=== PATIENT | male | born 1970 | race Caucasian/White ===

== ENCOUNTER 2016-12-23 10:12 | Inpatient (IN) | payer BC ==
[2016-12-22 20:00] VITALS: BP 127/63
[~2016-12-23] VITALS: Ht 185.4 cm; Wt 88.5 kg
--- NOTE | 2016-12-23 10:30 | NUR ---
PT CAME IN FOR R SIDE FACIAL SWELLING AND REDNESS WITH HIGH FEVER SINCE YESTERDAY. PER PT HE HAD A RECENT DENTAL CLEANING PROCEDURE DONE THEN THAT WHEN HE NOTICED THE SWELLING. SEEN BY MD FOR EVAL. VSS. SAFETY AND COMFORT MEASURES PROVIDED. WILL MONITOR.
[2016-12-23] MEDS ORDERED: IV NS 0.9% 1,000 ML BAG IV ONE (11:00)
[2016-12-23] MEDS ORDERED: VANCOMYCIN 1 GM in IV D5W 250 ML IV ONE (11:00)
[2016-12-23] MEDS ORDERED: PIPERACILLIN /TAZOBACTAM 3.375 G in IV D5W 50 ML IV ONE (11:00)
[2016-12-23] MEDS ORDERED: IV NS 0.9% 1,000 ML ONE (11:04)
[2016-12-23] MEDS ORDERED: IV SET PRIMARY PUMP SET 1 EA INFUS.SET MC ONE (11:04)
[2016-12-23 11:05] LABS: BASOPHILS # (AUTO) 0.2 /CMM (0.0-0.2); BASOPHILS % (AUTO) 1.3 % (0.0-2.0); HEMATOCRIT 46 % (39-51); HEMOGLOBIN 15.5 g/dL (13.5-17.5); LYMPHOCYTES # (AUTO) 1.7 /CMM (0.8-4.8); LYMPHOCYTES % (AUTO) 10.4 % (20.0-44.0); MEAN CORPUSCULAR HEMOGLOBIN 29 PG (26.0-33.0); MEAN CORPUSCULAR HGB CONC 34 g/dl (31.0-36.0); MEAN CORPUSCULAR VOLUME 85 fL (80-96); MONOCYTES # (AUTO) 1.2 /CMM (0.1-1.30); MONOCYTES % (AUTO) 7.6 % (2.0-12.0); NEUTROPHILS # (AUTO) 12.9 /CMM (1.8-8.9); NEUTROPHILS % (AUTO) 80.7 % (43.0-81.0); PLATELET COUNT (AUTO) 229 /CMM (150-450); RDW COEFFICIENT OF VARIATION 12.7 (11.5-15.0); RED BLOOD CELL COUNT(AUTO) 5.37 MIL/uL (4.5-6.0)
--- NOTE | 2016-12-23 11:16 | NUR ---
CALLED NURSING WING COVERER FOR M/S BED
[2016-12-23 11:18] LABS: CALCIUM, SERUM 8.5 mg/dL (8.5-10.1); CREATININE 1.3 mg/dL (0.6-1.3)
[2016-12-23 11:22] LABS: PROTHROMBIN TIME 10.4 SECS (9.5-12.7)
[2016-12-23] MEDS ORDERED: CT SWABBABLE VALVE TRANS SET 1 EA INFUS.SET MC ONE (11:38)
[2016-12-23] MEDS ORDERED: IOHEXOL-300 100 ML VIAL IV ONE (11:38)
[2016-12-23] MEDS ORDERED: IV NS 0.9% 250 ML IV ONE ×2 (11:38→16:14)
--- NOTE | 2016-12-23 11:42 | NUR ---
PT TAKEN TO CT.
[2016-12-23] MEDS ORDERED: ELVI1TAB3 (13:04)
[2016-12-23] MEDS ORDERED: TEST75GE (13:04)
--- NOTE | 2016-12-23 13:05 | NUR ---
REPORT GIVEN TO ELVIE CHRISTIAN FOR CONTINUITY OF CARE ON MS FLOOR
[2016-12-23 13:30] VITALS: BP 116/66
[2016-12-23] MEDS ORDERED: Z GUARD REMEDY 2 OZ OINT TP PRN (13:30)
[2016-12-23] MEDS ORDERED: MAG HYDROX/AL HYDROX/SIMETH 30 ML UDC PO PRN (13:30)
[2016-12-23] MEDS ORDERED: MAGNESIUM HYDROXIDE 30 ML UDC PO PRN (13:30)
[2016-12-23] MEDS ORDERED: ACETAMINOPHEN 325 MG TABLET PO PRN (13:30)
[2016-12-23] MEDS ORDERED: ONDANSETRON HCL/PF 4 MG/2 ML VIAL IVP PRN (13:30)
[2016-12-23] MEDS ORDERED: ZOLPIDEM TARTRATE 5 MG TABLET PO PRN (13:30)
--- NOTE | 2016-12-23 13:30 | NUR ---
MS RN NOTES RECEIVED PT FROM ER VIA WHEELCHAIR AOX3, NO ACUTE DISTRESS OR SOB NOTED, NOTED WITH RIGHT SIDE FACIAL SWELLING WITH ADM. DX OF RIGHT FACIAL CELLULITIS. DENIES ANY PAIN AT THIS TIME. LAC # 18 INTACT AND PATENT WITH VANCOMYCIN IV ON PROGRESS. DR. LIMA NOTIFIED ABOUT THE ADMISSION. BELONGINGS AT BEDSIDE. CALL LIGHT IN REACH, BED IN LOW POSITION FOR SAFETY MEASURES. WILL CONTINUE TO MONITOR.
[2016-12-23] MEDS ORDERED: FEE PK DOSING 1 MIN EA MC ONE (14:26)
[2016-12-23] MEDS ORDERED: SECONDARY IV SET 1 EA INFUS.SET MC ONE (16:14)
[2016-12-23] MEDS: PIPERACILLIN /TAZOBACTAM 3.375 G in IV D5W 50 ML IV SCH ×2 (16:21→22:44)
--- NOTE | 2016-12-23 17:30 | NUR ---
MS RN NOTES S/B DR. LIMA, AND INSTRUCTED PATIENT TO BRING HIS HOME MEDICATIONS (HIV MEDS). PT VERBALIZED UNDERSTANDING. PLEASE FOLLOW UP TOMORROW.
--- NOTE | 2016-12-23 18:16 | NUR ---
MS RN NOTES ENDORSED TO INCOMING SHIFT FOR CONTINUITY OF CARE. NEEDS ALL ATTENDED AND ANTICIPATED.
--- NOTE | 2016-12-23 19:30 | NUR ---
RN NOTES RECEIVED PT AWAKE ON BED, A/OX4, AMBULATORY , PT RIGHT OSVALDO OF HIS FACE IS SWOLLEN, CALL LIGHT WITHIN REACH, SODERAILS UPX2 CONTINUE TO MONITOR
[2016-12-23] MEDS: HYDROCODONE/APAP 5/325MG 1 EACH TABLET PO PRN (19:35)
--- NOTE | 2016-12-23 19:40 | NUR ---
RN NOTES COMPLAINED OF RIGHT CHEEK PAIN- NORCO 5/325 MH PO GIVEN ORDERED, V/S STABLE
[2016-12-23 20:00] VITALS: BP 127/63
[2016-12-23] MEDS ORDERED: VANCOMYCIN 1 GM VIAL ONE (22:44)
[2016-12-23] MEDS ORDERED: IV D5W 250 ML IV ONE (22:44)
[2016-12-23] MEDS: VANCOMYCIN 1 GM in IV D5W 250 ML IV SCH (23:47)
[2016-12-24] MEDS: PIPERACILLIN /TAZOBACTAM 3.375 G in IV D5W 50 ML IV SCH ×4 (05:20→23:12)
[2016-12-24] MEDS: HYDROCODONE/APAP 5/325MG 1 EACH TABLET PO PRN ×3 (05:26→22:40)
--- NOTE | 2016-12-24 05:34 | NUR ---
RN NOTES COMPLAINED OF PAIN ON HIS RIGHT SIDE OF HIS FACE -NORCO 5/325 MG PO GIVEN ORDERED, V/S STABLE
[2016-12-24 06:43] LABS: BASOPHILS % (AUTO) 0.3 % (0.0-2.0); EOSINOPHILS # (AUTO) 0.1 /CMM (0.0-0.7); EOSINOPHILS % (AUTO) 0.7 % (0.0-6.0); HEMATOCRIT 41 % (39-51); HEMOGLOBIN 13.8 g/dL (13.5-17.5); LYMPHOCYTES # (AUTO) 1.7 /CMM (0.8-4.8); LYMPHOCYTES % (AUTO) 14.3 % (20.0-44.0); MEAN CORPUSCULAR HEMOGLOBIN 29 PG (26.0-33.0); MEAN CORPUSCULAR HGB CONC 34 g/dl (31.0-36.0); MEAN CORPUSCULAR VOLUME 86 fL (80-96); MONOCYTES # (AUTO) 1.2 /CMM (0.1-1.30); MONOCYTES % (AUTO) 9.7 % (2.0-12.0); NEUTROPHILS # (AUTO) 8.9 /CMM (1.8-8.9); PLATELET COUNT (AUTO) 210 /CMM (150-450); RDW COEFFICIENT OF VARIATION 13.3 (11.5-15.0); RED BLOOD CELL COUNT(AUTO) 4.79 MIL/uL (4.5-6.0); WHITE BLOOD COUNT (AUTO) 11.9 K/uL (4.3-11.0)
--- NOTE | 2016-12-24 06:48 | NUR ---
RN NOTES AWAKE, PAIN IS TOLERABLE AT THIS TIME, NO SOB, MORNING CRE RENDERED, PT. NEEDS ATTENDED
[2016-12-24 07:06] LABS: CALCIUM, SERUM 8.3 mg/dL (8.5-10.1); CREATININE 1.2 mg/dL (0.6-1.3); MAGNESIUM 1.7 mg/dL (1.8-2.4); PHOSPHORUS 3.7 mg/dL (2.5-4.9); POTASSIUM 4.2 mmol/L (3.5-5.1)
--- NOTE | 2016-12-24 07:30 | NUR ---
MS/RN Patient received Patient received from warehouse worker 2nd shift. No needs, call light within reach. Will continue to monitor and ensure safety.
[2016-12-24 08:00] VITALS: BP_SYST 107; BP_DIAS 65; BP_DIAS 68
--- NOTE | 2016-12-24 10:00 | NUR ---
MS/RN Labs Morning labs reviewed ; -WBC 11.9 -Mag 1.7
--- NOTE | 2016-12-24 11:00 | NUR ---
MS/RN Mag Mag replaced with 2gm.
--- NOTE | 2016-12-24 11:33 | NUR ---
Per H&P report by Dr. Vargas, pt. is a 46 year old male with PMH of HIV, viral load undetectable on antiviral therapy who presented to the emergency room with right-sided facial swelling. He states that he had a dental cleaning over the weekend. However over the past 24 hours he has noted swelling, redness warmth and tenderness to the right side of his face underneath the period over that region and the right side of the nose. He denies any insect bites, no dental pain, no dental extraction. No eye pain no eye pain with extraocular movements. SW met with pt. bedside. Pt. is A&O x4. Pt. is pleasant and friendly with SW during the assessment. Pt. resides alone at [address] [place] [address] in [facility]. Pt. is employed by [employer] and works as an clerical dentist assistant. Pt. is compliant with his HIV medications and has a physician he sees regularly. Pt. denies any alcohol and drug use. Pt. is a non-smoker. Pt. has has no history of psychiatric hospitalizations. Pt. denies any suicidal/homicidal ideations and visual/auditory hallucinations at this time. Pt. is requesting no other social service needs at this time and social service manager will re-assess if necessary.
[2016-12-24] MEDS ORDERED: SECONDARY IV SET 1 EA INFUS.SET MC ONE ×2 (11:39→15:00)
[2016-12-24] MEDS: Magnesium 1GM/D5W 100ML PREMIX 100 ML IV SCH ×2 (11:48→14:09)
[2016-12-24] MEDS: VANCOMYCIN 1 GM in IV D5W 250 ML IV SCH ×2 (12:29→23:43)
--- NOTE | 2016-12-24 13:00 | NUR ---
MS/RN S/B Dr Vargas Seen by Dr Vargas - patient to remain in the hospital for another 24 hours for IVAB, will add acyclovir every 8 hours at patient request to rule out slight chance that facial swelling is due to shingles.
[2016-12-24] MEDS: ACYCLOVIR IV 500 MG in IV D5W 100 ML IV SCH ×2 (15:09→22:07)
[2016-12-24 16:00] VITALS: BP 101/60
--- NOTE | 2016-12-24 18:15 | NUR ---
MS/RN End note Dr Vargas paged to obtain order to continue home meds. Medication reconciliation faxed to pharmacy. Denies any further pain at this time, right side of face appears less swollen than this morning. Will continue to observe and endorse to kitchen food server.
[2016-12-24] MEDS ORDERED: TESTOSTERONE XX SCH (18:30)
--- NOTE | 2016-12-24 19:50 | NUR ---
MS RN NOTE: PATIENT RESTING IN BED, NO ACUTE DISTRESS NOTED. BREATHING EVEN AND UNLABORED, NO SOB NOTED. IV TO LAC IN PLACE. BED LOCKED AND IN LOWEST POSITION, CALL LIGHT IN REACH. WILL CONTINUE TO MONITOR.
[2016-12-24 20:26] VITALS: BP 108/60
[2016-12-24] MEDS: GENVOYA PO SCH (20:45)
--- NOTE | 2016-12-24 22:45 | NUR ---
MS RN NOTE: PATIENT COMPLAINS OF PAIN OF TO RIGHT CHEEK 7/10, NORCO 5/325 MG ORAL GIVEN PER MD ORDER. WILL CONTINUE TO MONITOR.
[2016-12-25] MEDS: PIPERACILLIN /TAZOBACTAM 3.375 G in IV D5W 50 ML IV SCH ×3 (05:06→16:35)
[2016-12-25] MEDS: ACYCLOVIR IV 500 MG in IV D5W 100 ML IV SCH ×2 (05:41→12:11)
--- NOTE | 2016-12-25 06:10 | NUR ---
MS RN NOTE: PATIENT RESTING IN BED, NO ACUTE DISTRESS NOTED. BREATHING EVEN AND UNLABORED, NO SOB NOTED. IV TO LAC IN PLACE. BED LOCKED AND IN LOWEST POSITION, CALL LIGHT IN REACH. WILL ENDORSE TO DAY NURSE TO CONTINUE WITH PLAN OF CARE.
[2016-12-25 06:44] LABS: CALCIUM, SERUM 8.2 mg/dL (8.5-10.1); CREATININE 1.3 mg/dL (0.6-1.3); POTASSIUM 4.3 mmol/L (3.5-5.1)
--- NOTE | 2016-12-25 07:30 | NUR ---
MS/RN Patient received Patient received from overnight cashier. Swelling to right side of face significantly reduced from yesterday. Continues on IVAB, continue to monitor.
[2016-12-25 08:00] VITALS: BP 95/52
[2016-12-25] MEDS: GENVOYA PO SCH (08:08)
[2016-12-25] MEDS: HYDROCODONE/APAP 5/325MG 1 EACH TABLET PO PRN (08:12)
--- NOTE | 2016-12-25 08:30 | NUR ---
MS/RN Pain medication [place] one tablet given for pain to right side of face 12/26. Will monitor effectiveness.
--- NOTE | 2016-12-25 11:00 | NUR ---
MS/RN Zosyn Zosyn administered as ordered.
--- NOTE | 2016-12-25 11:30 | NUR ---
MS/RN Vanco trough Vanco trough drawn.
[2016-12-25] MEDS ORDERED: CLIN300C97 PO (11:55)
--- NOTE | 2016-12-25 12:00 | NUR ---
MS/RN Acyclovir Acyclovir administered as ordered.
--- NOTE | 2016-12-25 12:37 | NUR ---
MS/RN S/B Dr Vargas Seen by Dr Vargas - patient is cleared to be discharged home today after receiving IVAB. Prescription for clindamycin written and to be filled at any pharmacy. Needs to follow up with primary day care provider.
[2016-12-25] MEDS: VANCOMYCIN 1 GM in IV D5W 250 ML IV SCH (13:18)
[2016-12-25 15:53] VITALS: BP 107/48
[2016-12-25 16:00] VITALS: BP 107/48
--- NOTE | 2016-12-25 17:46 | NUR ---
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 Heplock and name bands removed. Education provided to patient on new prescription for clindimycin, including any possible side effects. Patient instructed to follow up with primary care doctor in 7-10 days and to return to the nearest emergency room if swelling increases in face or starts to have difficulty in breathing.
== END 2016-12-25 17:30 | disposition home or self-care (01) | DRG 596 ==
LOC: ER 11:33 → MEDSG2 12:11
PROVIDERS: ADMIT Family Medicine; ATTEND Family Medicine
DX: B02.9 Zoster without complications (principal); L03.211 Cellulitis of face; L03.213 Periorbital cellulitis; Z87.891 Personal history of nicotine dependence; E83.42 Hypomagnesemia
CPT/HCPCS: 36415; 70487-TC; 71010-TC; 80048-TC; 80061-TC; 80202-TC; 83605-TC; 83735-TC; 84100-TC; 85025-TC; 85730-TC; 87040-TC; 87081-TC; A4606; J0133; J2543; J3370; J3475; J7030; J7050; J7060; Q9967; Z7610